=== PATIENT | male | born 1950 | race Caucasian/White ===

== ENCOUNTER 2018-03-26 12:09 | Emergency (ER) | payer MEDICARE, MEDICAID ==
[~2018-03-26] VITALS: Ht 180.3 cm; Wt 100.0 kg
[~2018-03-26 12:09] MED LIST: AMLODIPINE5 MG PO; ATENOLOL50 MG PO; CIPROFLOXACN500 MG PO; GENTAMICIN15 ML/BTL OP; GLIPIZIDE5 MG PO; HYDROCHLORO25 MG/TAB PO; LOSARTAN POT50 MG PO; MEVACOR20 MG PO; PIOGLITAZONE HC30 MG PO
[2018-03-26 13:14] LABS: ALKALINE PHOSPHATASE 83 u/l (38-126); BILIRUBIN, TOTAL 0.5 mg/dL (0.0-1.4); BUN 73 mg/dL (8-23); CHLORIDE 107 mmol/l (95-108); POTASSIUM 3.5 mmol/l (3.5-5.1); SGPT/ALT 29 u/l (11-66); SODIUM 138 mmol/l (137-146); TOTAL PROTEIN 6.3 g/dL (6.3-8.2)
[2018-03-26 13:16] LABS: ALBUMIN 2.8 g/dL (3.2-5.0); ANION GAP 20 (6-22 (CALC)); BUN/CREATININE RATIO 32 (12-20 (CALC)); CARBON DIOXIDE 15 mmol/l (22-30); CREATININE 2.3 mg/dL (0.7-1.3); GFR 29 ML/MIN (>=60 (CALC)); GFR FOR AFR.AMER. 35 ML/MIN (>=60 (CALC)); SGOT/AST 39 u/l (19-48)
[2018-03-26] MEDS ORDERED: ASPIRIN81 MG PO (13:38)
[2018-03-26] MEDS ORDERED: LOPID600 MG PO (13:39)
[2018-03-26] MEDS ORDERED: SPIRONOLACT25 MG PO (13:41)
[2018-03-26 13:42] LABS: IMMATURE GRANULOCYTES 0.7 % (0.0-1.0); MEAN CELL VOLUME 89.4 fL CALC (80.0-100.0); MEAN CORPUSCULAR HGB 29.8 pG CALC (26.0-32.0); MEAN CORPUSCULAR HGB CONC 33.3 g/L CALC (32.0-36.0); RED BLOOD COUNT 4.16 mill/uL (4.70-6.10); RED CELL DISTRI WIDTH 14.9 % (11.5-15.5)
[2018-03-26 13:43] LABS: HEMATOCRIT 37.2 % (39.0-50.0); HEMOGLOBIN 12.4 g/dl (14.0-18.0); PLATELET COUNT 326 thou/uL (130-400)
[2018-03-26 13:44] LABS: MANUAL DIFFERENTIAL YES
[2018-03-26 13:45] LABS: BAND 57 % (0-8)
[2018-03-26] MEDS ORDERED: LOSARTAN POT25 MG PO (13:46)
[2018-03-26 13:55] VITALS: BP 92/57
== END 2018-03-26 13:55 | disposition short-term general hospital (02) ==
LOC: ED 12:09
PROVIDERS: Emergency Medicine
DX: A41.9 Sepsis, unspecified organism (principal); R65.21 Severe sepsis with septic shock; N49.3 Fournier gangrene; E11.9 Type 2 diabetes mellitus without complications; F17.210 Nicotine dependence, cigarettes, uncomplicated; R94.31 Abnormal electrocardiogram [ECG] [EKG]

== ENCOUNTER 2020-05-12 18:29 | Emergency (ER) | payer MEDICARE, OTHER ==
[~2020-05-12] VITALS: Ht 180.3 cm; Wt 109.0 kg
[~2020-05-12 18:29] MED LIST changes: +ASPIRIN81 MG PO; +LOPID600 MG PO; +LOSARTAN POT25 MG PO; +SPIRONOLACT25 MG PO
[2020-05-12 21:34] VITALS: BP 132/80
[2020-08-04] MEDS ORDERED: GABAPENTIN100 MG PO (12:50)
[2020-08-04] MEDS ORDERED: LEVEMIR100 UNIT/M SC (12:51)
[2020-08-04] MEDS ORDERED: LASIX20 MG PO (12:51)
[2020-08-04] MEDS ORDERED: LEVOTHYROXIN25 MC1 PO (12:52)
[2020-08-04] MEDS ORDERED: MULTI PO (12:52)
[2020-08-04] MEDS ORDERED: MYBETRIQ PO (12:53)
[2020-08-04] MEDS ORDERED: KLOR-CON M1010 MEQ PO (12:54)
[2020-08-04] MEDS ORDERED: D31000 UNIT PO (12:55)
[2020-08-04] MEDS ORDERED: VIT C/ACEROL500 M1 PO (12:55)
[2020-08-04] MEDS ORDERED: CATAPRES0.3 M1 PO (12:56)
[2020-08-04] MEDS ORDERED: [UNRECOGNIZED DRUG - OTHER] PO (12:56)
[2020-08-08] MEDS ORDERED: MYRBETRIQ50 MG PO (13:34)
[2020-08-08] MEDS ORDERED: NOVOLIN R100 UNIT/1 (13:35)
[2020-08-08] MEDS ORDERED: TYLENOL325 M2 PO (13:36)
[2020-08-08] MEDS ORDERED: MILK OF MAG30 ML/UDC PO (13:37)
[2020-08-08] MEDS ORDERED: DULCOLAX10 MG RE (13:37)
[2020-08-08] MEDS ORDERED: NATURAL BALANCE1 SOL OU (13:37)
== END 2020-05-12 21:34 | disposition home or self-care (01) ==
LOC: ED 18:29
DX: S00.83XA Contusion of other part of head, initial encounter (principal); E11.9 Type 2 diabetes mellitus without complications; F17.200 Nicotine dependence, unspecified, uncomplicated; W19.XXXA Unspecified fall, initial encounter; Y92.89 Other specified places as the place of occurrence of the external cause; Z74.01 Bed confinement status

== ENCOUNTER 2020-08-11 06:37 | Day surgery (SDC) | payer MEDICARE, OTHER ==
[~2020-08-11 06:37] MED LIST changes: +CATAPRES0.3 M1 PO; +D31000 UNIT PO; +DULCOLAX10 MG RE; +GABAPENTIN100 MG PO; +KLOR-CON M1010 MEQ PO; +LASIX20 MG PO; +LEVEMIR100 UNIT/M SC; +LEVOTHYROXIN25 MC1 PO; +MILK OF MAG30 ML/UDC PO; +MULTI PO; +MYBETRIQ PO; +MYRBETRIQ50 MG PO; +NATURAL BALANCE1 SOL OU; +NOVOLIN R100 UNIT/1; +TYLENOL325 M2 PO; +VIT C/ACEROL500 M1 PO; +[UNRECOGNIZED DRUG - OTHER] PO
[2020-08-11 07:27] LABS: CREATININE 6.6 mg/dL (0.7-1.3); POTASSIUM 5.2 mmol/l (3.5-5.1)
[2020-08-11] MEDS ORDERED: ASPIRIN81 MG PO (08:03)
[2020-08-11] MEDS ORDERED: TENORMIN PO (08:04)
[2020-08-11] MEDS ORDERED: LEVOTHYROXIN50 MCG PO (08:08)
[2020-08-11] MEDS ORDERED: MULTI VIT PO (08:11)
[2020-08-11] MEDS ORDERED: AMLODIPINE BESY10 MG PO (08:12)
[2020-08-11] MEDS ORDERED: VIT C/ACEROL500 M1 PO (08:13)
[2020-08-11] MEDS ORDERED: ACIDOPHILU4 PO (08:15)
[2020-08-11] MEDS ORDERED: CATAPRES0.1 MG PO (08:17)
[2020-08-11] MEDS ORDERED: VITAMIN D31000 UNI1 PO (08:22)
[2020-08-11 11:13] VITALS: BP 111/78
== END 2020-08-11 10:43 | disposition home or self-care (01) ==
LOC: ORM 06:37
PROVIDERS: ATTEND Surgery
PROC: 02HV33Z Insertion of Infusion Device into Superior Vena Cava, Percutaneous Approach (ICD-10-PCS; principal; 2020-08-11)
PROC: B518ZZA Fluoroscopy of Superior Vena Cava, Guidance (ICD-10-PCS; 2020-08-11)
DX: I12.0 Hypertensive chronic kidney disease with stage 5 chronic kidney disease or end stage renal disease (principal); E11.22 Type 2 diabetes mellitus with diabetic chronic kidney disease; N18.6 End stage renal disease; J44.9 Chronic obstructive pulmonary disease, unspecified; Z79.4 Long term (current) use of insulin; Z86.73 Personal history of transient ischemic attack (TIA), and cerebral infarction without residual deficits; Z20.828 Contact with and (suspected) exposure to other viral communicable diseases
CPT/HCPCS: J1100

== ENCOUNTER 2020-08-28 00:36 | Emergency (ER) | payer MEDICARE, OTHER ==
[~2020-08-28] VITALS: Ht 180.3 cm; Wt 72.7 kg
[~2020-08-28 00:36] MED LIST changes: +ACIDOPHILU4 PO; +AMLODIPINE BESY10 MG PO; +CATAPRES0.1 MG PO; +LEVOTHYROXIN50 MCG PO; +MULTI VIT PO; +TENORMIN PO; +VITAMIN D31000 UNI1 PO
[2020-08-28 01:54] LABS: HEMATOCRIT 32.6 % (39.0-50.0); IMMATURE GRANULOCYTES 0.6 % (0.0-5.0); MEAN CELL VOLUME 87.9 fL CALC (80.0-100.0); MEAN CORPUSCULAR HGB 27.8 pG CALC (26.0-32.0); MEAN CORPUSCULAR HGB CONC 31.6 g/dL CAL (32.0-36.0); NEUT# 11.83 thou/uL (1.82-7.42); RED BLOOD COUNT 3.71 mill/uL (4.70-6.10); RED CELL DISTRI WIDTH 14.5 % (11.5-15.5)
[2020-08-28 01:56] LABS: HEMOGLOBIN 10.3 g/dl (14.0-18.0)
[2020-08-28 02:07] LABS: BILIRUBIN, TOTAL 0.6 mg/dL (0.0-1.4); POTASSIUM 4.9 mmol/l (3.5-5.1); TOTAL PROTEIN 6.7 g/dL (6.3-8.2)
[2020-08-28 02:16] LABS: ALBUMIN 3.6 g/dL (3.2-5.0); CREATININE 6.2 mg/dL (0.7-1.3)
[2020-08-28 02:56] LABS: URINE BILIRUBIN - DIPSTICK NEGATIVE (NEGATIVE); URINE BLOOD DIPSTICK MODERATE (NEGATIVE); URINE COLOR YELLOW; URINE GLUCOSE - DIPSTICK NEGATIVE (NEGATIVE); URINE KETONE NEGATIVE (NEGATIVE); URINE NITRITE - DIPSTICK NEGATIVE (Negative); URINE PROTEIN - DIPSTICK >=300 mg/dL (NEG-TRACE); URINE SPECIFIC GRAVITY 1.025; URINE UROBILINOGEN - DIPSTICK 0.2 E.U./dL (0.2)
[2020-08-28 02:57] LABS: URINE LEUK ESTERASE SMALL (NEGATIVE)
[2020-08-28 03:06] LABS: URINE BACTERIA FEW hpf; URINE MUCUS FEW hpf (NONE-FEW); URINE SQUAMOUS EPITHELIAL CELL FEW EPI/hpf (0-FEW)
[2020-08-28] MEDS ORDERED: BACTRIM DS1 TAB PO (03:52)
[2020-08-28 04:12] VITALS: BP 164/72
== END 2020-08-28 04:49 ==
LOC: ED 00:36
PROVIDERS: Family Medicine
DX: N39.0 Urinary tract infection, site not specified (principal); R11.10 Vomiting, unspecified; E11.22 Type 2 diabetes mellitus with diabetic chronic kidney disease; I12.0 Hypertensive chronic kidney disease with stage 5 chronic kidney disease or end stage renal disease; N18.6 End stage renal disease; B96.5 Pseudomonas (aeruginosa) (mallei) (pseudomallei) as the cause of diseases classified elsewhere; R78.81 Bacteremia; Z93.3 Colostomy status; Z79.4 Long term (current) use of insulin; Z99.2 Dependence on renal dialysis; Z96.0 Presence of urogenital implants; Z86.73 Personal history of transient ischemic attack (TIA), and cerebral infarction without residual deficits; Z20.828 Contact with and (suspected) exposure to other viral communicable diseases